=== PATIENT | male | born 1965 | race Caucasian/White ===

== ENCOUNTER 2019-02-09 21:40 | Emergency (ER) | payer MEDICAID ==
--- NOTE | 2019-02-09 22:26 | EDM.PDOC ---
ED HPI GENERAL MEDICAL PROBLEM - General Chief Complaint: General Stated Complaint: Dizzy and weak, fell at home, unrepsonsive undetermined time Time Seen by Provider: 02/09/19 22:10 Source of Information: Reports: Patient, Family, RN History Limitations: Reports: No Limitations - History of Present Illness INITIAL COMMENTS - FREE TEXT/NARRATIVE: 53 yr male presents with cough, congestion, had dialysis today around 10 am and dizziness, passed out this evening and called the ambulance for assist. Pt appears older than 53 yr. He does live in [facility] and when calling 911 the dispatched ambulance from [place] went to the home. Pt has been receiving his care at [facility] for several years. Sister states he fell and hit head and hit shoulder on some pop to left shoulder. States his head hurts and his lower back. States chronic low back pain for years. Pt has little health information. No recent health update in record at this facility. States hx of renal failure and on dialysis for 4 years, diabetes, chronic low back pain, previous fracture to right clavicle and recent change in vision of left eye and is planning on cataract surgery. States he has been having renal dialysis in [facility] for the last 4 years. States he has been weak all day since the dialysis, then got up to go to bathroom, became dizzy and fell. Sister reports he must have hit his head and his left shoulder as there is a red cari to the shoulder. Pt states he doesn't remember much of the day and woke up in the ambulance. States he is cool and feels cool most of the time. Family are gathering and will have a /memorial service this weekend for their father. Family are able to assist pt at home. Pt has remained alert during this ER visit and responds appropriately, but short answers and can't remember details. - Related Data Allergies Allergy/AdvReac Type Severity Reaction Status Date / Time No Known Allergies Allergy Verified 02/09/19 22:59 Home Meds: Home Meds Bumetanide [Bumex] 2 mg PO DAILY 02/09/19 [History] Calcium Acetate [PhosLo] 667 mg PO TID 02/09/19 [History] Carvedilol [Coreg] 25 mg PO BID 02/09/19 [History] Clopidogrel [Plavix] 75 mg PO DAILY 02/09/19 [History] Cyanocobalamin/FA/Pyridoxine [B Complex-Folic Acid] 1 each PO DAILY 02/09/19 [ History] Insulin Detemir [Levemir] 0 unit SUBCUT DAILY 02/09/19 [History] Isosorbide Mononitrate [Imdur] 120 mg PO DAILY 02/09/19 [History] Nitroglycerin [Nitrostat] 0.4 mg SL ASDIRECTED PRN 02/09/19 [History] Pravastatin Sodium [Pravachol] 10 mg PO DAILY 02/09/19 [History] hydrALAZINE [Apresoline] 100 mg PO BID 02/09/19 [History] metOLazone [Zaroxolyn] 5 mg PO BID 02/09/19 [History] Past Medical History HEENT History: Reports: Impaired Vision Cardiovascular History: Reports: Hypertension, SD Genitourinary History: Reports: Acute Renal Failure, Chronic Renal Insuffiency Musculoskeletal History: Reports: Back Pain, Chronic Neurological History: Reports: Headaches, Chronic, Head Trauma Psychiatric History: Reports: None Endocrine/Metabolic History: Reports: Diabetes, Type II Hematologic History: Reports: None Immunologic History: Reports: None Oncologic (Cancer) History: Reports: None Dermatologic History: Reports: Other (See Below) Other Dermatologic History: history of diabetic ulcers - Infectious Disease History Infectious Disease History: Reports: Chicken Pox - Past Surgical History Musculoskeletal Surgical History: Reports: Other (See Below) Social & Family History - Family History Family Medical History: Noncontributory - Living Situation & Occupation Living situation: Reports: Single Occupation: Disabled ED [facility] GENER[facility] - Review of Systems Review Of Systems: See Below Constitutional: Reports: Weakness. Denies: Fever, Chills HEENT: Reports: Other (poor vision left eye, taking eye drops, sister states cataract and will have surgery soon). Denies: Eye Pain, Glasses, Hearing Loss Respiratory: Reports: Shortness of Breath, Cough, Other (chew tobacco since age 8). Denies: Wheezing, Sputum Cardiovascular: Reports: Dyspnea on Exertion, Lightheadedness. Denies: Chest Pain Endocrine: Reports: Other (diabetes, hasn't been checking his BS, take Levemir daily in am) GI/Abdominal: Reports: No Symptoms : Reports: Other (had dialysis for about 4 years.) Musculoskeletal: Reports: Other (some headache to top of head, some pain to lower back.) Skin: Reports: Bruising, Other (dialysis left arm). Denies: Erythema, Wound Neurological: Reports: Dizziness, Weakness, Other (unresponsive at home for a few minutes.). Denies: Confusion, Trouble Speaking, Difficulty Walking Psychiatric: Reports: Other (some depression with in family recently) Hematologic/Lymphatic: Reports: No Symptoms Immunologic: Reports: No Symptoms ED EXAM, GENERAL - Physical Exam Exam: See Below Exam Limited By: Other (poor historian) General Appearance: Alert, No Apparent Distress Eye Exam: Left Eye: Vision Changes (states cataract, using eye qtts) Ears: Hearing Grossly Normal Ear Exam: Bilateral Ear: Auricle Normal (No erythema, no bleeding, no skin tears noted) Nose: Normal Inspection, Normal Mucosa, No Blood Throat/Mouth: Normal Voice, No Airway Compromise Head: Atraumatic, Normocephalic Neck: Normal Inspection, Supple, Non-Tender Respiratory/Chest: Decreased Breath Sounds (to bases), Other (occasional cough) . No: Crackles, Wheezing Cardiovascular: Regular Rate, Rhythm, No Edema Peripheral Pulses: 2+: Radial (L), Radial (R), Dorsalis Pedis (L), Dorsalis Pedis (R) GI/Abdominal: Normal Bowel Sounds, Soft, Non-Tender, No Distention Back Exam: Normal Inspection Extremities: Normal Inspection, Non-Tender, No Pedal Edema Neurological: Alert, Oriented, Normal Cognition Psychiatric: Normal Affect, Normal Mood Skin Exam: Warm, Dry, Normal Color, Ecchymosis (Small bruise to left shoulder). No: Diaphoretic, Wound/Incision Lymphatic: No Adenopathy Course - Vital Signs Last Recorded V/S: Last Vital Signs Temp 98.4 F 02/09/19 23:34 Pulse 69 02/09/19 23:34 Resp 22 H 02/09/19 23:34 BP 170/67 H 02/09/19 23:34 Pulse Ox 97 02/09/19 23:34 - Orders/Labs/Meds Orders: Active Orders 24 hr Category Date Time Status Cardiac Monitoring [RC] .As Directed Care 02/10/19 07:15 Active Chest 1V Frontal [CR] Stat Exams 02/09/19 22:19 Taken Head wo Cont [CT] Stat Exams 02/09/19 22:46 Taken Labs: Laboratory Tests 02/09/19 02/09/19 Range/Units 22:20 22:20 WBC 7.2 (4.0-11.0) K/uL RBC 3.69 L (4.50-6.50) M/uL Hgb 11.7 L D (13.0-18.0) g/dL Hct 34.6 L D (40.0-54.0) % MCV 94 (76-96) fL MCH 31.7 (27.0-32.0) pg MCHC 33.8 (31.0-35.0) g/dL RDW 13.9 (11.0-16.0) % Plt Count 105 L D (150-400) K/uL MPV 10.8 H (6.0-10.0) fL Neut % (Auto) 75.8 H (45.0-70.0) % Lymph % (Auto) 8.8 L (20.0-40.0) % [place] % (Auto) 11.8 H (3.0-10.0) % Eos % (Auto) 3.2 (1.0-5.0) % Baso % (Auto) 0.4 (0.0-0.5) % Neut # (Auto) 5.44 (2.00-7.50) K/uL Lymph # (Auto) 0.63 L (1.50-4.00) K/uL [place] # (Auto) 0.85 H (0.20-0.80) K/uL Eos # (Auto) 0.23 (0.04-0.40) K/uL Baso # (Auto) 0.03 (0.02-0.10) K/uL Sodium 141 (136-145) mmol/L Potassium 4.6 (3.5-5.1) mmol/L Chloride 101 (98-107) mmol/L Carbon Dioxide 27.0 D (21.0-32.0) mmol/L Anion Gap 17.6 H (5.0-15.0) mmol/L BUN 18 D (8-26) mg/dL Creatinine 4.64 H* D (0.70-1.30) mg/dL Est Cr Clr Drug Dosing TNP Estimated GFR (MDRD) 13 L (>60) MLS/MIN BUN/Creatinine Ratio 3.9 L (6-25) Glucose 105 H (74-100) mg/dL Calcium 8.0 L (8.5-10.1) mg/dL - Re-Assessments/Exams Free Text/Narrative Re-Assessment/Exam: 02/09/19 22:47 Contacted [facility] for update list of medications and staff there report they need a release of information for this. Pt signed for release and waiting for medication list. Family doesn't know his medication and other family at home states they don't have anything to do with his medication and can 't tell what he takes. Family state unaware of how long he was unconscious at home and said it felt like 5 minutes. States he didn't wake up until he was in the ambulance. Will get a head CT. 02/09/19 23:[address] and chest x-ray. No acute findings per report. Labs consistent with chronic kidney failure. No leukocytosis noted, no anemia noted. Tapered oxgyen and SpO2=92% without oxygen. Recommend to take deep breaths to keep oxygen level up. With this diabetes hx and BS of 104 tonight, instructed to monitor BS at home, possible low blood sugar, may need dose of Levemir adjusted. Medication list from [facility] in [facility] was sent, but state pt was transferred to [facility] and uncertain on current list of medications. Will send for record from [facility] for list of medication. Daughter states she will assist pt with checking blood sugars, meals, and getting medications as scheduled. Follow-up with PCP tomorrow. Departure - Departure Time of Disposition: 23:45 Disposition: Home, Self-Care 01 Condition: Fair Clinical Impression: Chronic renal failure, Diabetes mellitus, Cough - Discharge Information *PRESCRIPTION DRUG MONITORING PROGRAM REVIEWED*: Not Applicable *COPY OF PRESCRIPTION DRUG MONITORING REPORT IN PATIENT [place]: Not Applicable Forms: ED Department Discharge Additional Instructions: Follow up with Primary provided. Check BS as ordered and eat your meals as ordered. Eat when you get home. - My Orders Last 24 Hours: My Active Orders 02/09/19 22:19 Chest 1V Frontal [CR] Stat 02/09/19 22:46 Head wo Cont [CT] Stat - Assessment/Plan Last 24 Hours: My Active Orders 02/09/19 22:19 Chest 1V Frontal [CR] Stat 02/09/19 22:46 Head wo Cont [CT] Stat Plan: Will discharge to home to care of family. Fell at home and was weak all day since dialysis at 10am and hadn't ate today. Recommend BS check bid to qid at home, medications as ordered from discharge list from [facility]. Pt may need insulin adjusted, but he doesn't have any knowledge of blood sugars and no records of the blood sugars. States he can't remember when he ate anything. Recommend regular meals and check of blood sugars. Pt had been on oxygen during the ER visit and weaned off the oxygen with SpO2 of 92% on room air upon discharge. Follow-up with PCP tomorrow for review of medications, cough and shortness of breath tomorrow.
--- NOTE | 2019-02-10 08:26 | CT ---
Date of Service: 02/09/19 Clinical Data: hit head, unresponsive at home UNENHANCED BRAIN CT: Multislice acquisition through the brain without IV contrast was performed. No priors. There is mild diffuse cerebral atrophy. There are periventricular lucencies bilaterally consistent with small vessel ischemic change. There is a focal lucency in the left basal ganglia and head of the caudate on the left consistent with an old lacunar infarct. There is also a small lucency in the right thalamus consistent with an old lacunar infarct. No masses or mass effect. No intracranial hemorrhage. No evidence of acute or subacute infarct. There is mucosal thickening in the ethmoid sinuses consistent with chronic sinusitis. No osseous abnormalities. IMPRESSION: No acute intracranial abnormalities. [id number] [facility]
--- NOTE | 2019-02-10 08:29 | CR ---
Date of Service: 02/09/19 Clinical Data: cough, short of breath AP CHEST, 02/09/19 Comparison is made to a prior exam dated 01/09/16. The heart size is a the upper limits of normal. The lungs are clear. No pneumothorax. No pleural effusions. No evidence of acute intrathoracic disease. [id number] [facility]
== END 2019-02-09 23:44 | disposition home or self-care (01) ==
LOC: LB.ED 21:40
DX: S40.012A Contusion of left shoulder, initial encounter (principal); E11.22 Type 2 diabetes mellitus with diabetic chronic kidney disease; I12.9 Hypertensive chronic kidney disease with stage 1 through stage 4 chronic kidney disease, or unspecified chronic kidney disease; N18.9 Chronic kidney disease, unspecified; R05 Cough; Z79.4 Long term (current) use of insulin; Z99.2 Dependence on renal dialysis; I25.2 Old myocardial infarction; W19.XXXA Unspecified fall, initial encounter; Y92.009 Unspecified place in unspecified non-institutional (private) residence as the place of occurrence of the external cause
CPT/HCPCS: 36415; 70450; 71045; 80048; 85025; 99284-25; A0425; A0429

== ENCOUNTER 2019-05-10 09:55 | Emergency (ER) | payer MEDICAID ==
--- NOTE | 2019-05-10 10:54 | EDM.PDOC ---
ED HPI GENERAL MEDICAL PROBLEM - General Stated Complaint: FOUND PASSED OUT IN YARD Time Seen by Provider: 05/10/19 10:00 Source of Information: Reports: Family History Limitations: Reports: Other (Slightly confused) - History of Present Illness INITIAL COMMENTS - FREE TEXT/NARRATIVE: According to brother who is giving the history: he found his brother outside his house today morning when he went to check on him. HE was arousable but confused. Bother thinks, patient might have been outside all night.He was very cold to touch. Pt has IDDM and has CRF on dialysis and has been followed at [facility]. He had his dialysis yesterday. Pt is confused in the emergency room, awake, but not very alert or oriented. HE does have shivers from cold on and off. Onset: Today Onset Date: 05/10/19 Onset Time: 08:00 Location: Reports: Generalized Improves with: Reports: None Worsens with: Reports: None Associated Symptoms: Reports: Confusion. Denies: Chest Pain, Cough, Diaphoresis , Fever/Chills, Nausea/Vomiting, Rash, Seizure, Shortness of Breath, Syncope, Weakness - Related Data Allergies Allergy/AdvReac Type Severity Reaction Status Date / Time No Known Allergies Allergy Verified 02/09/19 22:59 Home Meds: Home Meds Bumetanide [Bumex] 2 mg PO DAILY 02/09/19 [History] Calcium Acetate [PhosLo] 667 mg PO TID 02/09/19 [History] Carvedilol [Coreg] 25 mg PO BID 02/09/19 [History] Clopidogrel [Plavix] 75 mg PO DAILY 02/09/19 [History] Cyanocobalamin/FA/Pyridoxine [B Complex-Folic Acid] 1 each PO DAILY 02/09/19 [ History] Insulin Detemir [Levemir] 0 unit SUBCUT DAILY 02/09/19 [History] Isosorbide Mononitrate [Imdur] 120 mg PO DAILY 02/09/19 [History] Nitroglycerin [Nitrostat] 0.4 mg SL ASDIRECTED PRN 02/09/19 [History] Pravastatin Sodium [Pravachol] 10 mg PO DAILY 02/09/19 [History] hydrALAZINE [Apresoline] 100 mg PO BID 02/09/19 [History] metOLazone [Zaroxolyn] 5 mg PO BID 02/09/19 [History] Past Medical History HEENT History: Reports: Impaired Vision Cardiovascular History: Reports: Hypertension, [place] Genitourinary History: Reports: Acute Renal Failure, Chronic Renal Insuffiency Musculoskeletal History: Reports: Back Pain, Chronic Neurological History: Reports: Headaches, Chronic, Head Trauma Psychiatric History: Reports: None Endocrine/Metabolic History: Reports: Diabetes, Type II Hematologic History: Reports: None Immunologic History: Reports: None Oncologic (Cancer) History: Reports: None Dermatologic History: Reports: Other (See Below) Other Dermatologic History: history of diabetic ulcers - Infectious Disease History Infectious Disease History: Reports: Chicken Pox - Past Surgical History Musculoskeletal Surgical History: Reports: Other (See Below) Social & Family History - Family History Family Medical History: Noncontributory - Living Situation & Occupation Living situation: Reports: Single Occupation: Disabled ED ROS GENERAL - Review of Systems Review Of Systems: Unable To Obtain (as patient appears very confused on arrival.) ED EXAM, GENERAL - Physical Exam Exam: See Below Exam Limited By: Altered Mental Status General Appearance: WD/WN, Other (pt appears awake, but confused. PResently not oriented to place or person. He keeps moaning .) Eye Exam: Bilateral Eye: EOMI, PERRL Ears: Normal External Exam, Normal Canal, Hearing Grossly Normal, Normal TMs Ear Exam: Bilateral Ear: Auricle Normal, Canal Normal, TM normal Nose: Normal Inspection, Normal Mucosa, No Blood Throat/Mouth: Normal Inspection, Normal Lips, Normal Teeth, Normal Gums, Normal Oropharynx, Normal Voice, No Airway Compromise Head: Atraumatic, Normocephalic Neck: Normal Inspection, Supple, Non-Tender, Full Range of Motion Respiratory/Chest: No Respiratory Distress, Lungs Clear, Normal Breath Sounds, No Accessory Muscle Use, Chest Non-Tender Cardiovascular: Normal Peripheral Pulses, No Edema, No Gallop, No JVD, No Murmur , No Rub, Bradycardia Peripheral Pulses: 2+: Carotid (L), Carotid (R) GI/Abdominal: Normal Bowel Sounds, Soft, Non-Tender, No Organomegaly, No Distention, No Abnormal Bruit, No Mass Extremities: Normal Inspection, Normal Range of Motion, Non-Tender, No Pedal Edema, Normal Capillary Refill, Other (There ia AV fistula on left arm. ) Skin Exam: Warm, Mottled, Other (Skin temperature is very cold, especially over extremities.) EKG INTERPRETATION EKG Date: 05/10/19 Rhythm: NSR [place]: Normal P-Wave: Present QRS: Normal ST-T: Normal QT: Normal Course - Vital Signs Text/Narrative:: Pt's Vitals are stable, his heat rate is running around 50-55/min.His SPO2 on Oxygen after warming up his hands is 100%. His blood sugar was 132mgs.His rectal core temp is 84F. PT is confused about the surrounding, but co- operative. HE does have cold shivers. His EKG does not show any acute cardiac changes. Warm bear hugger was placed. IV line obtained. He did receive 500 cc bolus normal saline followed by 125cc/hr. Also The bladder was catheterized and urine drained and 300cc of warm saline infiltrated into the bladder and clamped. Basically pt needs to slowly warmed back to normal baseline temp. After some time of warming. Pt is starting to get more alert and he is oriented to place and person. Seems to be improving. Lab work ordered and also portable chest X-ray done, which is normal. Pt's CBC is normal. BMP shows normal electrolytes and his creat is 5.75( just had Dialysis yesterday and his next dialysis is tomorrow). LFT is stable other than mild elevation of ALK Phos to 161. His CPK is 350 and his Troponin is negative.UA shows 0-5 rbcs. Pt is now more alert now , his Temp is up to 87F.He is on bear hugger and warm NS. Also the warm normal saline has been placed again into the bladder and clamped. Family or patient does not know his PCP in [place]. They do not know his medications. His last Blood sugar was 161. I did contact [facility], they cannot accept the patient. [facility] does not have rn licensed practical dental office receptionist. Hence I did contact [facility]'s And discuss patient with Dr. Godfrey. He did agree to accept patient. Dr. Godfrey requested Blood culture on one dose of Zosyn 3.725mg IV before transfer. Which has been done. Also his blood pressure started to be elevated at 190/105mmhg. this might be related to NS infusion. he did receive one dose of clonidine 0.1mg orally. Pt is alert, awake and oriented .He will be transferred by [facility] considering the distance of the transfer and hypothermia.Further care per Dr. Godfrey. Last Recorded V/S: Last Vital Signs Temp 84.0 F L 05/10/19 10:57 Pulse 52 L 05/10/19 10:57 Resp 26 H 05/10/19 10:57 BP 178/94 H 05/10/19 10:57 Pulse Ox 98 05/10/19 10:57 - Orders/Labs/Meds Orders: Active Orders 24 hr Category Date Time Status EKG Documentation Completion [RC] ASDIRECTED Care 05/10/19 10:28 Ordered Chest 1V Frontal [CR] Stat Exams 05/10/19 10:55 Ordered INR,PT,PROTHROMBIN TIME [COAG] Stat Lab 05/10/19 10:26 Ordered PTT,PARTIAL THROMBOPLSTIN TIME [COAG] Stat Lab 05/10/19 10:26 Ordered EKG 12 Lead [EK] Routine Ther 05/10/19 10:27 Ordered Labs: Laboratory Tests 05/10/19 05/10/19 05/10/19 Range/Units 10:26 10:26 10:27 WBC 7.0 (4.0-11.0) K/uL RBC 4.28 L (4.50-6.50) M/uL Hgb 13.7 (13.0-18.0) g/dL Hct 39.0 L (40.0-54.0) % MCV 91 (76-96) fL MCH 32.0 (27.0-32.0) pg MCHC 35.1 H (31.0-35.0) g/dL RDW 12.7 (11.0-16.0) % Plt Count 82 L D (150-400) K/uL MPV 11.8 H (6.0-10.0) fL Neut % (Auto) 88.3 H (45.0-70.0) % Lymph % (Auto) 6.3 L (20.0-40.0) % [place] % (Auto) 4.9 (3.0-10.0) % Eos % (Auto) 0.4 L (1.0-5.0) % Baso % (Auto) 0.1 (0.0-0.5) % Neut # (Auto) 6.13 (2.00-7.50) K/uL Lymph # (Auto) 0.44 L (1.50-4.00) K/uL [place] # (Auto) 0.34 (0.20-0.80) K/uL Eos # (Auto) 0.03 L (0.04-0.40) K/uL Baso # (Auto) 0.01 L (0.02-0.10) K/uL Sodium 139 (136-145) mmol/L Potassium 5.0 (3.5-5.1) mmol/L Chloride 100 (98-107) mmol/L Carbon Dioxide 28.8 (21.0-32.0) mmol/L Anion Gap 15.2 H (5.0-15.0) mmol/L BUN 38 H D (8-26) mg/dL Creatinine 5.75 H* D (0.70-1.30) mg/dL Est Cr Clr Drug Dosing TNP Estimated GFR (MDRD) 10 L (>60) MLS/MIN BUN/Creatinine Ratio 6.6 (6-25) Glucose 161 H D (74-100) mg/dL Calcium 8.2 L (8.5-10.1) mg/dL Total Bilirubin 0.6 D (0.0-1.0) mg/dL AST 25 (15-37) U/L ALT 30 (12-78) U/L Alkaline Phosphatase 161 H (46-116) U/L Creatine Kinase (21-232) U/L Troponin I 0.023 (0.000-0.060) ng/mL Total Protein 7.4 (6.4-8.2) g/dL Albumin 3.6 (3.4-5.0) g/dL Globulin 3.8 (2.2-4.2) g/dL Albumin/Globulin Ratio 0.9 (0.8-2.0) Urine Color Yellow Urine Appearance Clear (CLEAR) Urine pH 6.0 (5.0-8.0) Ur Specific [place] 1.020 (1.003-1.030) Urine Protein >=300 H (NEGATIVE) mg/dL Urine Glucose (UA) 100 H (NEGATIVE) mg/dL Urine Ketones Negative (NEGATIVE) mg/dL Urine Occult Blood Trace-intact H (NEGATIVE) Urine Nitrite Negative (NEGATIVE) Urine Bilirubin Negative (NEGATIVE) Urine Urobilinogen 0.2 (0.2-1.0) E.U./dL Ur Leukocyte Esterase Negative (NEGATIVE) Urine RBC 0-5 H /HPF Urine WBC 0-5 H /HPF Ur Squamous Epith Cells Few /HPF Amorphous Sediment Many /HPF Urine Bacteria Few /HPF 05/10/19 Range/Units 10:27 WBC (4.0-11.0) K/uL RBC (4.50-6.50) M/uL Hgb (13.0-18.0) g/dL Hct (40.0-54.0) % MCV (76-96) fL MCH (27.0-32.0) pg MCHC (31.0-35.0) g/dL RDW (11.0-16.0) % Plt Count (150-400) K/uL MPV (6.0-10.0) fL Neut % (Auto) (45.0-70.0) % Lymph % (Auto) (20.0-40.0) % [place] % (Auto) (3.0-10.0) % Eos % (Auto) (1.0-5.0) % Baso % (Auto) (0.0-0.5) % Neut # (Auto) (2.00-7.50) K/uL Lymph # (Auto) (1.50-4.00) K/uL [place] # (Auto) (0.20-0.80) K/uL Eos # (Auto) (0.04-0.40) K/uL Baso # (Auto) (0.02-0.10) K/uL Sodium (136-145) mmol/L Potassium (3.5-5.1) mmol/L Chloride (98-107) mmol/L Carbon Dioxide (21.0-32.0) mmol/L Anion Gap (5.0-15.0) mmol/L BUN (8-26) mg/dL Creatinine (0.70-1.30) mg/dL Est Cr Clr Drug Dosing Estimated GFR (MDRD) (>60) MLS/MIN BUN/Creatinine Ratio (6-25) Glucose (74-100) mg/dL Calcium (8.5-10.1) mg/dL Total Bilirubin (0.0-1.0) mg/dL AST (15-37) U/L ALT (12-78) U/L Alkaline Phosphatase (46-116) U/L Creatine Kinase 350 H (21-232) U/L Troponin I (0.000-0.060) ng/mL Total Protein (6.4-8.2) g/dL Albumin (3.4-5.0) g/dL Globulin (2.2-4.2) g/dL Albumin/Globulin Ratio (0.8-2.0) Urine Color Urine Appearance (CLEAR) Urine pH (5.0-8.0) Ur Specific [place] (1.003-1.030) Urine Protein (NEGATIVE) mg/dL Urine Glucose (UA) (NEGATIVE) mg/dL Urine Ketones (NEGATIVE) mg/dL Urine Occult Blood (NEGATIVE) Urine Nitrite (NEGATIVE) Urine Bilirubin (NEGATIVE) Urine Urobilinogen (0.2-1.0) E.U./dL Ur Leukocyte Esterase (NEGATIVE) Urine RBC /HPF Urine WBC /HPF Ur Squamous Epith Cells /HPF Amorphous Sediment /HPF Urine Bacteria /HPF Departure - Departure Time of Disposition: 13:30 Disposition: DC/Tfer to [facility] Condition: Fair Clinical Impression: Hypothermia, Renal failure - Discharge Information *PRESCRIPTION DRUG MONITORING PROGRAM REVIEWED*: Not Applicable *COPY OF PRESCRIPTION DRUG MONITORING REPORT IN PATIENT [place]: Not Applicable Referrals: PCP,None [Primary Care Provider] - - Problem List & Annotations (1) Hypothermia SNOMED Code(s): 695942813 Code(s): T68.XXXA - HYPOTHERMIA, INITIAL ENCOUNTER Status: Acute Current Visit: Yes (2) Renal failure SNOMED Code(s): 49749504 Code(s): N19 - UNSPECIFIED KIDNEY FAILURE Status: Acute Current Visit: Yes (3) Diabetes mellitus SNOMED Code(s): 44630219 Code(s): E11.9 - TYPE 2 DIABETES MELLITUS WITHOUT COMPLICATIONS Status: Acute Current Visit: No - Problem List Review Problem List Initiated/Reviewed/Updated: Yes - My Orders Last 24 Hours: My Active Orders 05/10/19 10:26 INR,PT,PROTHROMBIN TIME [COAG] Stat PTT,PARTIAL THROMBOPLSTIN TIME [COAG] Stat 05/10/19 10:27 EKG 12 Lead [EK] Routine 05/10/19 10:28 EKG Documentation Completion [RC] ASDIRECTED 05/10/19 10:55 Chest 1V Frontal [CR] Stat - Assessment/Plan Last 24 Hours: My Active Orders 05/10/19 10:26 INR,PT,PROTHROMBIN TIME [COAG] Stat PTT,PARTIAL THROMBOPLSTIN TIME [COAG] Stat 05/10/19 10:27 EKG 12 Lead [EK] Routine 05/10/19 10:28 EKG Documentation Completion [RC] ASDIRECTED 05/10/19 10:55 Chest 1V Frontal [CR] Stat Assessment:: hypothermia CRF on Dialysis DM Plan: Pt's Vitals are stable, his heat rate is running around 50-55/min.His SPO2 on Oxygen after warming up his hands is 100%. His blood sugar was 132mgs.His rectal core temp is 84F. PT is confused about the surrounding, but co- operative. HE does have cold shivers. His EKG does not show any acute cardiac changes. Warm bear hugger was placed. IV line obtained. He did receive 500 cc bolus normal saline followed by 125cc/hr. Also The bladder was catheterized and urine drained and 300cc of warm saline infiltrated into the bladder and clamped. Basically pt needs to slowly warmed back to normal baseline temp. After some time of warming. Pt is starting to get more alert and he is oriented to place and person. Seems to be improving. Lab work ordered and also portable chest X-ray done, which is normal. Pt's CBC is normal. BMP shows normal electrolytes and his creat is 5.75( just had Dialysis yesterday and his next dialysis is tomorrow). LFT is stable other than mild elevation of ALK Phos to 161. His CPK is 350 and his Troponin is negative.UA shows 0-5 rbcs. Pt is now more alert now , his Temp is up to 87F.He is on bear hugger and warm NS. Also the warm normal saline has been placed again into the bladder and clamped. Family or patient does not know his PCP in [place]. They do not know his medications. His last Blood sugar was 161. I did contact [facility], they cannot accept the patient. [facility] does not have rn licensed practical dental office receptionist. Hence I did contact [facility]'s And discuss patient with Dr. Godfrey. He did agree to accept patient. Dr. Godfrey requested Blood culture on one dose of Zosyn 3.725mg IV before transfer. Which has been done. Also his blood pressure started to be elevated at 190/105mmhg. this might be related to NS infusion. he did receive one dose of clonidine 0.1mg orally. Pt is alert, awake and oriented .He will be transferred by [facility] considering the distance of the transfer and hypothermia.Further care per Dr. Godfrey.
[2019-05-10] MEDS ORDERED: cloNIDine 0.1 MG Tab PO ONE (12:02)
[2019-05-10] MEDS ORDERED: cloNIDine 0.1 MG Tab ONE (12:03)
[2019-05-10] MEDS ORDERED: Piperacillin/Tazobactam 3.375 GM in Sodium Chloride 0.9% 100 ML IV STA (12:08)
--- NOTE | 2019-05-10 13:18 | CR ---
Date of Service: 05/10/19 Clinical Data: hypothermia PORTABLE AP CHEST: Comparison is made to a prior exam dated 02/09/19. The heart is enlarged. The patient has taken a very poor inspiration. The pulmonary vasculature appears prominent with cephalization of flow. It is more prominent than on the prior exam. It may be accentuated by the poor inspiration. Pulmonary venous congestion should be considered. There is increased density in both lung bases consistent with basilar atelectasis or infiltrate. The lungs are otherwise clear. No pneumothorax. No pleural effusions. [id number] [facility]
[2019-05-10] MEDS ORDERED: Sodium Chloride 0.9% 10 ML Syringe FLUSH PRN (14:45)
== END 2019-05-10 14:00 ==
LOC: LB.ED 09:55
DX: T68.XXXA Hypothermia, initial encounter (principal); N19 Unspecified kidney failure; I12.0 Hypertensive chronic kidney disease with stage 5 chronic kidney disease or end stage renal disease; N18.6 End stage renal disease; E11.22 Type 2 diabetes mellitus with diabetic chronic kidney disease; I25.2 Old myocardial infarction; Z79.899 Other long term (current) drug therapy; Z79.02 Long term (current) use of antithrombotics/antiplatelets; Z99.2 Dependence on renal dialysis
CPT/HCPCS: 36415; 51702; 71045; 80053; 81001; 82550; 84484; 85025; 85610; 85730; 93005; 99285; A0425; A0429; A9270; J7030